=== PATIENT | male | born 1940 | race Caucasian/White ===

== ENCOUNTER 2017-06-19 13:53 | Observation (INO) | payer OTHER ==
[~2017-06-19] VITALS: Ht 168.9 cm; Wt 79.2 kg
[2017-06-19 16:15] LABS: HEMATOCRIT 46.3 % (38.0-50.0); MCH 29.8 PG (29.0-34.0); MCHC 34.1 G/DL (30.0-36.0); MCV 87.2 FL (86-99); MEAN PLAT.VOLUME 10.5 uM^3 (9.0-12.4); PLATELET COUNT 118 K/uL (156-360); RBC DIS.WIDTH-CV 12.7 % (11.8-14.6); RBC DIS.WIDTH-SD 40.5 % (39-53); RED BLOOD COUNT 5.31 M/uL (4.00-5.50); WHITE BLOOD COUNT 7.6 K/uL (4.1-10.2)
[2017-06-19 16:27] LABS: CHLORIDE 103 mEq/L (99-109); POTASSIUM 4.3 mEq/L (3.7-5.4); SODIUM 140 mEq/L (136-147)
[2017-06-19 16:29] LABS: GLUCOSE 139 mg/dL (70-99)
[2017-06-19 16:30] LABS: ANION GAP 11 MEQ/L (2-14)
[2017-06-19 16:33] LABS: GFR ESTIMATE (CALCULATED) > 59 mL/min/
[2017-06-19 16:34] LABS: UREA NITROGEN (BUN) 18 mg/dL (9-23)
[2017-06-19 16:36] LABS: TROP-I INTERPRETATION NEGATIVE; TROPONIN-I 0.07 ng/mL (0.0-0.30)
[2017-06-19 22:01] LABS: INTER. NORMALIZED RATIO 1.1; PROTHROMBIN TIME 12.2 SEC (10.2-12.9)
[2017-06-19 22:06] LABS: TOTAL BILIRUBIN 0.6 mg/dL (0.0-1.0)
[2017-06-19 22:07] LABS: ALKALINE PHOSPHATASE 54 IU/L (3-129)
[2017-06-19 22:09] LABS: DIRECT BILIRUBIN 0.2 mg/dL (0.0-0.3)
[2017-06-19 22:13] LABS: TROP-I INTERPRETATION NEGATIVE; TROPONIN-I 0.07 ng/mL (0.0-0.30)
[2017-06-19] MEDS ORDERED: METFORMIN HCL1000 MG PO (22:50)
[2017-06-19] MEDS ORDERED: LOPRESSOR50 MG PO (22:50)
[2017-06-19] MEDS ORDERED: PRAVACHOL10 MG PO (22:52)
[2017-06-19] MEDS ORDERED: AMLODIPINE BESYL5 MG PO (22:52)
[2017-06-19] MEDS ORDERED: FISH OIL 1,0001 EAC7 PO (22:53)
[2017-06-19] MEDS ORDERED: LISINOPRIL20 MG PO (22:53)
[2017-06-19] MEDS ORDERED: LO-DOSE ASPIRIN81 M2 PO (22:54)
[2017-06-19] MEDS ORDERED: CENTRUM SILVER1 EAC5 PO (22:55)
[2017-06-19] MEDS ORDERED: TYLENOL EXTRA500 MG PO (22:56)
[2017-06-19 23:07] VITALS: BP 147/84
[2017-06-20 00:01] LABS: POINT-OF-CARE METER ID UU14162513
[2017-06-20 04:06] VITALS: BP 131/75
[2017-06-20 05:28] LABS: HEMATOCRIT 43.3 % (38.0-50.0); MCH 30.6 PG (29.0-34.0); MCHC 35.1 G/DL (30.0-36.0); MCV 87.1 FL (86-99); MEAN PLAT.VOLUME 11.1 uM^3 (9.0-12.4); PLATELET COUNT 103 K/uL (156-360); RBC DIS.WIDTH-SD 40.8 % (39-53); RED BLOOD COUNT 4.97 M/uL (4.00-5.50); WHITE BLOOD COUNT 6.9 K/uL (4.1-10.2)
[2017-06-20 05:46] LABS: TROP-I INTERPRETATION NEGATIVE; TROPONIN-I 0.07 ng/mL (0.0-0.30)
[2017-06-20 06:17] LABS: ANION GAP 10 MEQ/L (2-14); CHLORIDE 103 MEQ/L (99-109); GFR ESTIMATE (CALCULATED) > 59 mL/min/; GLUCOSE 143 mg/dL (70-99); SAMPLE HEMOLYSIS CHECK 0; SAMPLE ICTERIC CHECK 0; SAMPLE LIPEMIA CHECK 0; SODIUM 140 MEQ/L (136-147); UREA NITROGEN (BUN) 23 mg/dL (9-23)
[2017-06-20 09:15] VITALS: BP 151/73
[2017-06-20] MEDS ORDERED: FAMOTIDINE20 MG PO (10:31)
== END 2017-06-20 11:40 | disposition home or self-care (01) ==
LOC: EME 13:53 → EDOF 21:16 → 5WEST 21:16 → ENRESERV 21:19 → 5WEST 22:35
PROVIDERS: Hospitalist
DX: R07.9 Chest pain, unspecified (principal); I10 Essential (primary) hypertension; E11.9 Type 2 diabetes mellitus without complications; Z95.2 Presence of prosthetic heart valve; E78.00 Pure hypercholesterolemia, unspecified; I45.10 Unspecified right bundle-branch block; Z82.49 Family history of ischemic heart disease and other diseases of the circulatory system; I25.10 Atherosclerotic heart disease of native coronary artery without angina pectoris; Z95.1 Presence of aortocoronary bypass graft; Z79.82 Long term (current) use of aspirin; Z79.84 Long term (current) use of oral hypoglycemic drugs
CPT/HCPCS: 71020; 80048; 80076; 81003; 82948; 83735; 84100; 84484; 85027; 85610; 85730; 93005; 99281; 99285; G0378; J1644